=== PATIENT | male | born 1975 | race Caucasian/White ===

== ENCOUNTER 2021-01-23 01:21 | Emergency (ER) | payer OTHER ==
--- NOTE | 2021-01-23 02:54 | NUR ---
CALLED PT TO TRIAGE NO ROOM, NO RESPONSE
--- NOTE | 2021-01-23 03:05 | NUR ---
CALLED FOR TRIAGE , NO ANSWER
--- NOTE | 2021-01-23 03:11 | NUR ---
CALLED FOR TRIAGE, NO ANSWER
== END 2021-01-23 03:36 | disposition left against medical advice (07) ==
LOC: ER 01:24
DX: Z53.21 Procedure and treatment not carried out due to patient leaving prior to being seen by health care provider (principal)